=== PATIENT | male | born 1990 | race Caucasian/White ===

== ENCOUNTER 2019-02-09 14:29 | Inpatient (IN) ==
[2019-02-09] MEDS ORDERED: LOPRESSOR IV ONE (15:23)
[2019-02-09] MEDS ORDERED: ATIVAN IV ONE ×3 (15:23→17:33)
[2019-02-09 16:02] LABS: BASO# 0.05 X1000 (0.0-0.2); BASO% 0.4 % (0.0-0.8); EOS# 0.01 X1000 (0.0-0.7); EOS% 0.1 % (0.0-10.0); HEMATOCRIT 46.9 % (42.0-52.0); HEMOGLOBIN 16.2 g/dL (14.0-18.0); IMM GRAN# 0.06 X1000 (0.0-0.04); IMM GRAN% 0.5 % (0.0-0.5); LYMPH# 0.73 X1000 (1.2-3.4); LYMPH% 6.3 % (20.5-51.1); MCH 28.9 PG (27-31); MCHC 34.5 g/dL (33-37); MCV 83.8 FL (81-99); MONO# 1.04 X1000 (0.11-0.59); MONO% 8.9 % (1.7-9.3); MPV 10.2 FL (7.4-10.4); NEUT# 9.74 X1000 (1.4-6.5); NEUT% 83.8 % (42.2-75.2); PLT 217 X1000 (130-400); RDW 13.5 % (11.5-14.5); WBC 11.63 X1000 (4.8-10.8)
--- NOTE | 2019-02-09 16:18 | Diag Imaging Result Doc PS360 ---
EXAM: CT HEAD W/O CONTRAST HISTORY: new seizure TECHNIQUE: CT head without contrast COMPARISON: None. FINDINGS: No parenchymal hemorrhage. No epidural or subdural hematoma. No subarachnoid hemorrhage. No mass identified on this noncontrasted exam. No hydrocephalus. No sinus opacification. IMPRESSION: No hemorrhage. Negative brain CT without contrast. This exam was performed using automated exposure control, adjustment of mA or kV according to patient size, and/or use of iterative reconstruction technique. Electronically signed by Puneet Rooney 02/09/2019 4:16 PM
[2019-02-09 16:26] LABS: AGAP 23; ALB/GLOB RATIO 1.7; ALBUMIN 5.2 g/dL (3.5-5.0); ALKALINE PHOSPHATASE 72 U/L (32-122); BUN 12 mg/dL (8-22); CALCIUM 10.8 mg/dL (8.8-10.2); CHLORIDE 96 mmol/L (98-107); COSMO 279; CREATININE 1.3 mg/dL (0.7-1.2); ESTIMATED GFR > 60; GLUCOSE 158 mg/dL (70-104); GOT 216 U/L (10-34); GPT 113 U/L (10-44); SODIUM 138 mmol/L (136-145); TCO2 19 mmol/L (25-35); TOTAL BILIRUBIN 1.08 mg/dL (0.20-1.00); TOTAL PROTEIN 8.3 g/dL (6.3-8.3)
[2019-02-09] MEDS ORDERED: NS 500 ML IV ONE (17:12)
[2019-02-09] MEDS ORDERED: NS 2,000 ML ONE (17:20)
[2019-02-09] MEDS ORDERED: NS 1,000 ML IV ONE ×2 (17:26→19:19)
--- NOTE | 2019-02-09 17:33 | Diag Imaging Result Doc PS360 ---
EXAM: CHEST-PORTABLE HISTORY: sob/cp TECHNIQUE: Chest single view COMPARISON: None. FINDINGS: The lungs are well expanded. The heart is not enlarged. The vessels are not distended. There are no infiltrates. No effusion identified. IMPRESSION: Negative exam. Electronically signed by Puneet oRoney 02/09/2019 5:31 PM
--- NOTE | 2019-02-09 17:34 | PROVIDER DOCUMENTATION ---
This chart was entered by Delma Laguna Scribe, acting as scribe for Gilmer Ford MD. HPI-Neurological Disorder - General Chief Complaint: Seizure Stated Complaint: SEIZURE Time Seen by Provider: 02/09/19 15:14 Source: patient, family () Allergies/Adverse Reactions: Patient Allergies Allergy/AdvReac Type Severity Reaction Status Date / Time No Known Allergies Allergy Verified 02/09/19 15:21 - History of Present Illness-Neuro Nature of Presenting Problem: Patient is a 28 year old male who presents to the ED via EMS with seizure like activity. Patient's states she was home for lunch and patient got up and walked to the door and started jerking then fell to the ground and continued to jerk. denies patient having a history of seizure but states patient's mother has a history of seizures. Patient denies having incontinence. Patient states feeling palpitations when walking to the door. Denies taking daily medications today. Report he did not take his medications today because every time he took a sip of water he felt full. states patient has a cavernous hemangioma. Severity: reports: mild Onset/Duration: reports: just prior to arrival Timing: reports: gone now Context: reports: seizure activity Associated Symptoms: reports: nausea, other (palpitations) Similar Symptoms Previously?: No Recently seen or treated by another doctor?: No - Seizure First time to have a seizure?: Yes Witnessed seizure?: Yes How many seizure episodes?: 1 Duration of episode? (mins): 2 Episode Frequency: no prior episodes Character of Seizure: reports: generalized shaking all over Seizure related injury: bit tongue Review of Systems - Adult - REVIEW OF SYSTEMS - ADULT Constitutional: reports: no symptoms reported. denies: chills, fever, fatique Eyes: reports: no symptoms reported Ears, Nose, Mouth & Throat: reports: no symptoms reported Cardiovascular: reports: see HPI, palpitations. denies: chest pain, heart murmur Respiratory: reports: no symptoms reported Gastrointestinal: reports: see HPI, nausea. denies: diarrhea, vomiting Genitourinary: reports: no symptoms reported Musculoskeletal: reports: no symptoms reported Integumentary: reports: no symptoms reported Neurological: reports: see HPI, seizure. denies: dizziness/vertigo, headache/migraines, numbness, syncope Psychiatric: reports: no symptoms reported Endocrine: reports: no symptoms reported Hematologic/Lymphatic: reports: no symptoms reported Allergic/Immunologic: reports: no symptoms reported All Other Systems: Reviewed and Negative Past History - Adult - PAST MEDICAL HISTORY-ADULT Review of Records: reports: Nursing Assessment Review, Medications Reviewed, Social history reviewed & non-contributory. Major Childhood Illnesses: reports: denies history Cardiovascular: reports: HTN Respiratory: reports: denies history Gastrointestinal: reports: GERD Obstetrical/Gynecological: reports: denies history Genitourinary: reports: denies history Musculoskeletal: reports: denies history Neurological: reports: denies history Psychiatric: reports: anxiety, depression Endocrine/Immune: reports: denies history Other Conditions: reports: denies history - PRIOR SURGERIES/PROCEDURES Surgical/Procedure History: reports: reviewed, not pertinent - IMMUNIZATION STATUS Childhood Immunizations: See Nurse Assessment Flu Vaccine: See Nurse Assessment - FAMILY HISTORY Family History: reviewed, not pertinent - SOCIAL HISTORY Smoking: denies Substance Use: alcohol Alcohol Use Frequency: every day Living Situation: family Physical Exam- Neurological - Physical Exam-Neuro General Appearance: alert, no apparent distress, anxious. negative: lethargic, slow to respond HENMT: other (bite cyndi to tongue). negative: angioedema, hearing deficit Head Injury: no evidence of injury. negative: ecchymosis, lacerations Respiratory: chest non-tender, lungs clear. negative: crackles, rhonchi Cardiovascular: normal peripheral pulses, tachycardia. negative: systolic murmur Abdominal Exam: normal bowel sounds, non tender, soft. negative: guarding, rebound Extremity: non-tender, normal inspection. negative: deformity, erythema domestic housekeeper Exam: normal hearing, normal speech. negative: abnormal speech, facial droop Neurologic: grossly normal. negative: aphasia, facial droop Integumentary: normal color, normal turgor, warm/dry. negative: cyanosis, ecchymosis, erythema Psych/Mental Status: oriented x 3, anxious. negative: paranoid - Glascow Coma Scale Best Eye Response: (4) open spontaneously Best Verbal Response: (5) oriented Best Motor Response: (6) obeys commands Total Glascow Score: 15 Progress - PLAN OF CARE/RESULTS Progress/Plan/Lab Results: Vital Signs - 8 hr 02/09/19 14:50 02/09/19 15:00 02/09/19 15:03 Temperature Pulse Rate 119 H Respiratory Rate 18 Blood Pressure 159/98 164/100 O2 Sat by Pulse Oximetry 94 L 95 93 L 02/09/19 15:09 02/09/19 15:10 02/09/19 15:13 Temperature 98.9 F Pulse Rate 148 H 156 H Respiratory Rate 17 21 Blood Pressure 139/106 139/106 O2 Sat by Pulse Oximetry 95 93 L 94 L 02/09/19 15:20 02/09/19 15:30 02/09/19 15:40 Temperature Pulse Rate 154 H 157 H 149 H Respiratory Rate 24 15 26 H Blood Pressure O2 Sat by Pulse Oximetry 94 L 96 94 L 02/09/19 15:50 02/09/19 15:54 02/09/19 16:09 Temperature Pulse Rate 146 H 129 H Respiratory Rate 18 17 Blood Pressure 167/101 O2 Sat by Pulse Oximetry 94 L 93 L 95 02/09/19 16:10 Temperature Pulse Rate 116 H Respiratory Rate 25 H Blood Pressure O2 Sat by Pulse Oximetry 95 Laboratory Results - last 24 hr 02/09/19 02/09/19 02/09/19 15:28 15:40 15:40 WBC RBC Hgb Hct MCV MCH MCHC RDW Std Deviation Plt Count MPV Immature Gran % (Auto) Neut % (Auto) Lymph % (Auto) [place] % (Auto) Eos % (Auto) Baso % (Auto) Immature Gran # (Auto) Neut # (Auto) Lymph # (Auto) [place] # (Auto) Eos # (Auto) Baso # (Auto) Sodium 138 Potassium 5.0 Chloride 96 L Carbon Dioxide 19 L Anion Gap 23 BUN 12 Creatinine 1.3 H Estimated GFR/1.73 m2 > 60 BUN/Creatinine Ratio 9 Glucose 158 H POC Glucose 167 H Calculated Osmolality 279 Calcium 10.8 H Magnesium 2.0 Total Bilirubin 1.08 H AST 216 H ALT 113 H Alkaline Phosphatase 72 Total Protein 8.3 Albumin 5.2 H Globulin 3.1 Albumin/Globulin Ratio 1.7 Plasma/Serum Ethyl Alc 02/09/19 15:40 WBC 11.63 H RBC 5.60 Hgb 16.2 Hct 46.9 MCV 83.8 MCH 28.9 MCHC 34.5 RDW Std Deviation 13.5 Plt Count 217 MPV 10.2 Immature Gran % (Auto) 0.5 Neut % (Auto) 83.8 H Lymph % (Auto) 6.[address] % (Auto) 8.9 Eos % (Auto) 0.1 Baso % (Auto) 0.4 Immature Gran # (Auto) 0.06 H Neut # (Auto) 9.74 H Lymph # (Auto) 0.[address] # (Auto) 1.04 H Eos # (Auto) 0.01 Baso # (Auto) 0.05 Sodium Potassium Chloride Carbon Dioxide Anion Gap BUN Creatinine Estimated GFR/1.73 m2 BUN/Creatinine Ratio Glucose POC Glucose Calculated Osmolality Calcium Magnesium Total Bilirubin AST ALT Alkaline Phosphatase Total Protein Albumin Globulin Albumin/Globulin Ratio Plasma/Serum Ethyl Alc Orders Category Date Time Status Finger Stick Blood Sugar (ED) DIRECTED Care 02/09/19 15:21 Active Notify MD if DIRECTED Care 02/09/19 15:21 Active Saline Loc NOW Care 02/09/19 15:21 Active CHEST-PORTABLE [RAD] Stat Exams 02/09/19 17:[address] HEAD W/O CONTRAST [CT] Stat Exams 02/09/19 15:22 Completed ALCOHOL BLOOD Stat Lab 02/09/19 15:40 Completed CBC WITH ELECTRONIC DIFF [HEME] Stat Lab 02/09/19 15:40 Completed COMPREHENSIVE METABOLIC PANEL [CHEM] Stat Lab 02/09/19 15:40 Completed MAGNESIUM [CHEM] Stat Lab 02/09/19 15:40 Completed URINE DRUG SCREEN Stat Lab 02/09/19 15:21 Uncollected 0.9% Sodium Chloride Inj [Ns] 500 ml Med 02/09/19 17:12 Active IV 999 mls/hr Lorazepam [Ativan] Med 02/09/19 15:23 Discontinued 0.5 mg IV NOW ONE Lorazepam [Ativan] Med 02/09/19 16:06 Discontinued 0.5 mg IV NOW ONE Metoprolol [Lopressor] Med 02/09/19 15:23 Discontinued 5 mg IV NOW ONE Seizure, New Onset Stat Oth 02/09/19 15:21 Ordered Result Diagrams: 02/09/19 15:40 02/09/19 15:40 - EKG 1 Time of EKG reading by physician:: 15:15 EKG Read and Signed by:: Gilmer Ford EKG Interpretation (*Must complete 3 of following elements*): Abnormal Rate: 156 Rhythm: sinus tachycardia W[place] Interval: normal Comments: otherwise normal ECG - CT/MRI 1 CT Study: Head Impression: See EMR Report (EXAM: CT HEAD W/O CONTRAST HISTORY: new seizure TECHNIQUE: CT head without contrast COMPARISON: None. FINDINGS: No parenchymal hemorrhage. No epidural or subdural hematoma. No subarachnoid hemorrhage. No mass identified on this noncontrasted exam. No hydrocephalus. No sinus opacification. IMPRESSION: No hemorrhage. Negative brain CT without contrast. This exam was performed using automated exposure control, adjustment of mA or kV according to patient size, and/or use of iterative reconstruction technique. Electronically signed by Puneet Rooney 02/09/2019 4:16 PM 02/09/19 1616 Interpreting Physician: Puneet Rooney MD Dictated Date/Time: 02/09/19 1615 cc: Gilmer Ford MD; None,PCP) - CONSULTS/PCP/HOSPITALIST Notification #1 *Consult/PCP/Hospitalist*: KRISTIN Ireland for Hospitalist Time Discussed: 17:16 Reason/Comments: Dr. Ford consulted with Shu about patient. Consult Disposition: Will see in ED, Admit Departure - Departure Date of Disposition Decision: 02/09/19 Time of Disposition Decision: 17:16 DIAGNOSIS: New onset seizure, Hypercalcemia Disposition: HOME 01 Certified Medical Emergency: Emergent Condition: Stable Referrals and Follow-Ups: None,PCP [Primary Care Provider] - - Critical Care Note This patient required my direct & personal management of CC.: Yes Total Time (mins): 31 Critical Care Statement: This patient required my direct personal management to treat or rule out processes, the absence of which, could potentiallly result in sudden, clinically significant life or limb threatening deterioration. Attestation - Physician/ [facility] Attestation The physician spent face to face time with patient:: Yes Advanced Practice Provider documentation review:: Supervising physician onsite and consulted in the evaluation and care of this patient. The physician did have a face to face encounter with the patient. This chart was documented by the indicated scribe, (Delma Laguna Scribe) and accurately reflects the services I performed and decisions made by me, Gilmer Ford MD, as attested by the provider's signature.
[2019-02-09 18:04] LABS: ALLEN TEST YES; BE 0.4 mmoll (-3.0-3.0); BLOOD TYPE ARTERIAL; HCO3-(ACT) 25.1 mmoll (20.0-26.0); METHB 1.2 % (0.0-1.5); O2(CT) 20.5 mL/dL (15.0-23.0); O2HB 93.3 % (95.0-99.0); PCO2(98.6) 33 mmHg (35-45); PO2(98.6) 74 mmHg (60-100); SAMPLE BLOOD; SAO2 96.1 % (95.0-100.0); THB 15.6 g/dL (11.5-17.4); pH(98.6) 7.46 (7.35-7.45)
[2019-02-09 18:05] LABS: MODALITY ROOM AIR
[2019-02-09 18:49] LABS: UR AMPHETAMINES QUAL NONE DETECTED (NONE DETECT); UR BARBITUATES QUAL NONE DETECTED (NONE DETECT); UR BENZODIAZEPIN QUAL NONE DETECTED (NONE DETECT); UR CANNABINOIDS QUAL NONE DETECTED (NONE DETECT); UR COCAINE QUAL NONE DETECTED (NONE DETECT); UR METHADONE QUAL NONE DETECTED (NONE DETECT); UR OPIATES QUAL NONE DETECTED (NONE DETECT); UR OXYCODONE QUAL NONE DETECTED (NONE DETECT); UR PCP QUAL NONE DETECTED (NONE DETECT)
[2019-02-09] MEDS ORDERED: ATIVAN IV PRN (19:19)
[2019-02-09] MEDS ORDERED: PROTONIX IV SCH (19:19)
[2019-02-09] MEDS ORDERED: SODIUM CHLORIDE 0.9% INJ SCH (19:19)
[2019-02-09] MEDS ORDERED: ZOFRAN IV PRN (19:19)
--- NOTE | 2019-02-09 19:28 | HISTORY AND PHYSICAL ---
PRIMARY CARE PROVIDER: Catracho Valdivia MD NEUROLOGIST: Used to be Dr. Godoy in [place]. CHIEF COMPLAINT: Seizure activity. HISTORY OF PRESENT ILLNESS: Mr. Ojeda is a 28-year-old male, who carries a past medical history of a cavernous hemangioma that was diagnosed 1 year ago secondary to having headaches. He was followed by Dr. Godoy in [place]. He was placed on seizure medications; however, he only took it for about 6 months and then took himself off of it. He also quit going to his neurology appointments secondary to it being too far to drive. He does abuse alcohol. He drinks 1 pint of vodka per day. His last drink was yesterday evening. Hypertension, GERD, depression. He reported to the ED after his witnessed him have a seizure for about 3 minutes. There was no loss of bowel of bladder. Per EMS report, he was postictal afterwards. His head CT was negative. Chest x-ray was negative. Laboratory data showed a white count of 11, with a chloride of 96, a carbon dioxide of 19, creatinine 1.3, blood glucose of 158, calcium of 10.8, total bilirubin of 1.08, AST of 216, ALT of 113, alkaline phosphatase was 72, albumin 5.2. His serum alcohol level was negative. He did report prior to having the seizure he got up some time in the middle of the night to get on the couch. He was not sleeping well. He was having some nausea and vomiting. He could not keep any food or liquids down initially. His seizure was around lunchtime when his came home for lunch. He will be admitted to the ICU overnight for further evaluation and treatment and placed on seizure precautions as well watch him closely for any alcohol withdrawal. He does seem somewhat shaky. We will continue to provide IV Ativan and p.o. Librium and place him on DT protocol if necessary. REVIEW OF SYSTEMS: A 12 point review of systems was completely negative except for those mentioned in HPI. PAST MEDICAL HISTORY: 1. Hypertension. 2. Gastroesophageal reflux disease. 3. Cavernous hemangioma to the left frontal lobe. 4. Depression. PAST SURGICAL HISTORY: Cauterization of the nose. FAMILY HISTORY: Father is an alcoholic. He had an uncle who from alcoholism. SOCIAL HISTORY: He is . They have no children. They do have a dog that they refer to as their fur baby. One pint of alcohol per day. No illicit drug use or tobacco use. HOME MEDICATIONS: Have not been placed. However, the showed me bottles of buspirone, losartan, metoprolol, trazodone, Prilosec, and carbamazepine. PHYSICAL EXAMINATION: VITAL SIGNS: Temperature 98.6 degrees, heart rate 118, respirations 18, blood pressure 140/94, O2 is 96% on room air. GENERAL: Mr. Ojeda is a 28-year-old male, he was sitting up in the stretcher. He was asleep when I walked in. He awakened easily. After he was woken, he was somewhat anxious appearing. HEENT: Atraumatic, normocephalic. PERRL. NECK: Supple. Trachea midline. CARDIOVASCULAR: S1, S2 appreciated. No murmurs, gallops, or rubs noted. RESPIRATORY: Lung sounds clear bilaterally. GASTROINTESTINAL: Soft, nontender, nondistended. Positive bowel sounds 4 quadrants. SKIN: Warm, dry, and intact. EXTREMITIES: Lower extremities are negative for edema. NEUROLOGIC: Patient was asleep. He easily awoke to voice. He is alert and oriented to name, date of , time, and place. No focal deficits noted. DIAGNOSTIC AND LABORATORY DATA: As per HPI. ASSESSMENT AND PLAN: 1. Seizure could be 1 of 2 things. 1. alcohol withdrawal secondary to daily alcohol use with 1 pint of vodka. 2. The patient does have a history of a cavernous hemangioma. Could be a combination of both. His serum alcohol level was 0. His last drink was last night. He did have a witnessed seizure by his that lasted 3 minutes. He did bite his tongue. There was no loss of bowel or bladder. Again, we will monitor him in the ICU overnight, place him on seizure precautions, provide p.r.n. Ativan for seizures or alcohol withdrawal. Continue with frequent neurological checks. Consult Neurology in the a.m. Check a brain MRI in the a.m. Watch him closely for DTs. 2. Alcohol abuse see #1 3.Cavernous hemangioma history over a year ago and stopped going to see Neuro or taking seizure meds. 4. Hypercalcemia. We will check a PTH. Continue with IV fluid bolus and high rate IV fluids. Recheck his calcium in the morning. If it is still high, we could send him for a nuclear scan. 5. Hypertension. We will continue his home medications when reconciled. We will go ahead and start him on metoprolol. 6. Tachycardia. Continue metoprolol. 7. Anxiety and depression. We will continue home medications when verified. 8. Gastroesophageal reflux disease. Continue proton pump inhibitor. 9. Elevated liver functions, possibly secondary to alcoholism. We will check hepatitis profile and as well as check a right upper quadrant ultrasound in the morning. 10. Acute kidney injury. We will continue with IV fluids. Recheck his kidney function in the a.m. We do not have a baseline. 11. Hyperglycemia. We will check hemoglobin A1c in the a.m. Further recommendation to follow physician evaluation and laboratory and diagnostic data. Dictated by KRISTIN Eagle for John Byrd MD cc: MD Catracho Laura MD Eston G. Norwood III, MD I agree with most components of history, physical, assessment and plan. A separate addendum has been dictated. KIM
[2019-02-09] MEDS ORDERED: KEPPRA 1,500 MG in NS 100 ML IV ONE (19:30)
[2019-02-09] MEDS: LIBRIUM PO SCH (19:37)
[2019-02-09] MEDS ORDERED: TYLENOL PO PRN (20:13)
[2019-02-09] MEDS: LOPRESSOR PO SCH (20:49)
[2019-02-09] MEDS: MELATONIN PO SCH (20:49)
--- NOTE | 2019-02-09 21:21 | HISTORY AND PHYSICAL ---
ADDENDUM: This is an addendum to History and Physical dictated by the nurse practitioner. I agree with most components of history, physical, assessment, and plan. In brief, Mr. Ojeda is a 28-year-old man, with past medical history of chronic headache, suspected absence seizure, alcohol abuse, anxiety, family history of seizure in his mother in her 20s or 30s, who comes in after witnessed generalized tonic clonic seizure lasting for about 2 minutes, which was witnessed by his . When EMS arrived at the site, he was postictal and he was taken to the emergency room. In the emergency room, his vitals have been stable. At the time of my evaluation, the patient states that he used to drink 1 entire bottle of vodka a day for about 2-1/2 years. He started drinking when he was 24 to 25 years old. Since the last few months, he has been trying to cut it down and he drinks that entire bottle of vodka in about 2 to 3 days. His last drink was yesterday. He denies having experienced alcohol withdrawal symptoms except feeling a little jittery. He denies any prior alcohol withdrawal related hospital admission or alcoholic seizure. History is conformed and also addressed with the patient's at bedside. CURRENT VITALS: Temperature of 100 degrees, pulse of 112, respiratory rate 21, blood pressure 168/107, saturating 93 to 94 percent on 5 L nasal cannula. PHYSICAL EXAMINATION: GENERAL: Does not appear in any acute distress. ORAL CAVITY: Moist. LUNGS: Air entry bilaterally equal. No wheeze, rhonchi, crackles. CARDIOVASCULAR: S1, S2 normal. No murmur or gallop. ABDOMEN: Soft, nontender. LOWER EXTREMITIES: No edema. NEUROLOGIC: He is alert and oriented x3. Sensory examination is intact bilaterally. On motor examination, power, muscle mass, and tone are equal and 5/5 on bilateral upper and lower extremities. His speech is appearing normal. I did not check his gait. Cranial nerve examination is also nonfocal. LABS: Suggestive of leukocytosis. Normal hemoglobin, hematocrit, and normal platelet count. A pH is 7.46. BMP suggestive of elevated creatinine, hyperglycemia, hypercalcemia, and transaminitis, with AST more than ALT. MICROBIOLOGY: No data. IMAGING: Head CT did not have any parenchymal hemorrhage and no mass was identified. There was no sinus opacification. Chest x-ray: Lungs are well expanded. There were no infiltrates or effusion. ASSESSMENT AND PLAN: 1. 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 2. Alcohol abuse, with alcoholic hepatitis. 3. History of chronic headache. 4. Essential hypertension. 5. Kidney dysfunction. PLAN: 1. We will start patient on intravenous fluid resuscitation. 2. We will load him with levetiracetam . 3. We will start him with Keppra intravenous b.i.d. 4. I will also continue him on Librium and as needed lorazepam, and resume his home antihypertensive medication. 5. I will follow up with EEG, brain MRI to rule out structural lesions, and ultrasound abdomen for alcoholic hepatitis, and will consult Neurology in the morning time. 6. Plan of care was discussed with the patient and his at bedside. All of their questions have been answered. More than 30 minutes of critical care time was spent in taking care of this patient. cc: John Byrd MD MTDD
[2019-02-10] MEDS: LIBRIUM PO SCH ×4 (00:19→18:20)
[2019-02-10 05:39] LABS: BASO# 0.02 X1000 (0.0-0.2); BASO% 0.3 % (0.0-0.8); EOS# 0.09 X1000 (0.0-0.7); EOS% 1.4 % (0.0-10.0); HEMATOCRIT 42.1 % (42.0-52.0); HEMOGLOBIN 14.2 g/dL (14.0-18.0); LYMPH# 1.24 X1000 (1.2-3.4); LYMPH% 19.8 % (20.5-51.1); MCH 29.2 PG (27-31); MCHC 33.7 g/dL (33-37); MCV 86.4 FL (81-99); MONO# 0.74 X1000 (0.11-0.59); MONO% 11.8 % (1.7-9.3); MPV 10.4 FL (7.4-10.4); NEUT# 4.16 X1000 (1.4-6.5); NEUT% 66.7 % (42.2-75.2); PLT 132 X1000 (130-400); RBC 4.87 XMIL (4.7-6.1); RDW 13.5 % (11.5-14.5); WBC 6.25 X1000 (4.8-10.8)
[2019-02-10 05:49] LABS: AGAP 15; ALB/GLOB RATIO 1.5; ALBUMIN 4.4 g/dL (3.5-5.0); ALKALINE PHOSPHATASE 57 U/L (32-122); BUN 12 mg/dL (8-22); CALCIUM 9.1 mg/dL (8.8-10.2); CHLORIDE 99 mmol/L (98-107); COSMO 277; CREATININE 1.1 mg/dL (0.7-1.2); ESTIMATED GFR > 60; GLUCOSE 95 mg/dL (70-104); GOT 130 U/L (10-34); GPT 83 U/L (10-44); MAGNESIUM 2.3 mg/dL (1.5-2.7); POTASSIUM 3.7 mmol/L (3.5-5.1); SODIUM 139 mmol/L (136-145); TCO2 25 mmol/L (25-35); TOTAL BILIRUBIN 1.07 mg/dL (0.20-1.00); TOTAL PROTEIN 7.3 g/dL (6.3-8.3)
[2019-02-10] MEDS ORDERED: KEPPRA 750 MG in NS 100 ML IV SCH (06:00)
--- NOTE | 2019-02-10 07:21 | EKG Report ---
Test Performed on : 02/09/2019 3:15:08 PM Test Reason : ED. NO EKG ORDER FOR MUSE Blood Pressure : / mmHG Vent. Rate : 156 BPM Atrial Rate : 156 BPM P-R Int : 120 ms QRS Dur : 086 ms QT Int : 266 ms P-R-T Axes : 041 068 013 degrees QTc Int : 428 ms Sinus tachycardia. Otherwise normal ECG No previous ECGs available Unconfirmed Result
[2019-02-10] MEDS: LOPRESSOR PO SCH ×2 (08:28→20:15)
[2019-02-10] MEDS: COZAAR PO SCH (08:28)
--- NOTE | 2019-02-10 09:28 | EKG Report ---
Test Performed on : 02/10/2019 06:25:03 AM Test Reason : MD ordered Blood Pressure : / mmHG Vent. Rate : 091 BPM Atrial Rate : 091 BPM P-R Int : 152 ms QRS Dur : 092 ms QT Int : 380 ms P-R-T Axes : 021 016 009 degrees QTc Int : 467 ms Normal sinus rhythm. Normal ECG No previous ECGs available Confirmed by Tereso GONZALES, Phani Bradford ([id number]) on 02/11/2019 8:20:30 AM
--- NOTE | 2019-02-10 09:40 | Diag Imaging Result Doc PS360 ---
EXAM: MRI BRAIN W/WO CONTRAST INDICATION: Evaluate for hemangioma/mass COMPARISON: CT dated 02/09/2019. No prior MRIs available for comparison. FINDINGS: There is no evidence of acute infarct. At the anteromedial temporal lobe on the left near the skull base, there is a small rounded lesion measuring 1.3 x 1.1 cm axially. It has a heterogeneous signal. It is increased in signal on T1 and T2 centrally. There is a rim of low signal at its periphery on all sequences that is most prominent on the gradient coronal sequence. This suggests trace blood products (hemosiderin). This lesion is consistent with a cerebral cavernous malformation. It is certainly possible that this is the source of the patient's recent seizure, especially given its location. There is no appreciable enhancement. The small lesion was largely occult on the recent CT. Reviewing the previous CT, it may be visualized as a very subtle and ill-defined focus of increased attenuation. There is no other discrete intracranial mass, mass effect, or intracranial hemorrhage. There is no evidence of abnormal intracranial enhancement. The surrounding soft tissues and bony structures are essentially unremarkable. 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 Electronically signed by Asif Adair 02/10/2019 9:37 AM
--- NOTE | 2019-02-10 10:09 | PROGRESS NOTE ---
DATE: 02/10/2019 INTERVAL HISTORY: No acute overnight events. He did not have any more seizure episodes. He is still feeling a little weak. Denies any new complaints. SUBJECTIVE: Denies any chest pain, shortness of breath, nausea, vomiting, or abdominal pain. His complaining of some back pain. VITAL SIGNS: Temperature 98.4 degrees, pulse 90, respiratory rate 18, blood pressure 160/97, saturating 96% on room air. PHYSICAL EXAMINATION: General: Does not appear in acute distress. HEENT: Oral cavity is moist. Lungs: Air entry bilaterally equal. No wheeze, rhonchi crackles. CARDIOVASCULAR: S1, S2 normal. No murmur or gallop.Abdomen: Soft, nontender. Lower Extremities: No edema. Neurologic: He is alert oriented x3. On my yesterday's neurological examination, sensations were intact bilateral upper and lower extremity, power was 5 in 5. Cranial nerve examination was nonfocal and he did not have any dysdiadochokinesia. LABS: Today suggestive of normal hemoglobin, hematocrit, normal WBC count and normal platelet count. His electrolytes are essentially unremarkable. His creatinine has gone down. His transaminitis is improving. His urine toxicology was unremarkable. ASSESSMENT AND PLAN: 1. New onset generalized tonic-clonic seizure with suspected past history of absence seizure and history of cavernous hemangioma. Continue intravenous levetiracetam. Continue intravenous lorazepam as needed and follow up EEG and brain MRI. Appreciate Neurology recommendation. 2. History of alcohol abuse with one pint of vodka every day. Last drink on 02/08/2019 with alcoholic hepatitis. Follow up ultrasound of the liver. Continue chlordiazepoxide as needed IV lorazepam. 3. Essential hypertension continue him on home metoprolol and losartan. DISPOSITION: I will continue to monitor the patient in ICU for 24 hours to make sure he does not have any seizures. I will appreciate neurology recommendation about further antiseizure medication and workup based on his MRI findings. Plan of care discussed with him. TIME SPENT: More than 30 minutes of critical care time was spent in taking care of this patient. cc: John Byrd MD
--- NOTE | 2019-02-10 12:00 | CONSULTATION ---
DATE OF CONSULTATION: 02/10/2019 HISTORY: Mr. Ojeda is 28 years old and there is question of seizure. History from the patient and his attentive is that he was feeling nervous, which is not unusual. He stood, walked to the door, put each hand against the door frame. He reports remembering that he was beginning to turn, and he next remembers being on the couch with emergency personnel checking on him. History from is that he turned and seemed to become rigid and fell. She witnessed alternating periods of rigidity in the limbs with periods of shaking symmetrically in the limbs. The entire episode was a minute or so. There was no incontinence. He bit the tip of his tongue, but not to the point of bleeding. He was sleepy afterwards. There is history of possible periods of altered awareness as far back as childhood. There is history of behavior and memory gap. For example, he reports stripping the sheets off of his bed and putting them in his mother's car, and not remembering he had done that. Possibly, he did remember it later. There have been a lot of episodes of inattention with question of memory gap. has witnessed episodes of blank stare with unresponsiveness, sometimes associated with "saying words that do not make sense" for several seconds. Sometimes, he seems sleepy after one of those episodes. These have never been associated with tongue biting, lip biting, or incontinence. Episodes have occurred with variable frequency, several per year, more often when he has missed sleep. There is history of head injuries when he participated in cage fighting, but there was not clear history of concussion. He has never had diagnosed stroke or other neurologic event. He uses ethanol to excess. He went through a detox program and did not drink for about 3 months approximately a year ago. In the last year, he has ingested ethanol daily. He did not ingest ethanol for more than 24 hours prior to the episode yesterday. There was no change in frequency or character or episodes during the time without ethanol. He and have incomplete recollection, but they believe he used Trileptal 1 tablet daily for about 6 months, approximately a year ago, and there was no change in the episodes of altered awareness during that time. Workup here includes lab showing initial WBC count 11,000, later 6000. Blood sugars were initially 160s, later 90s. Liver enzymes are elevated. Urine drug screen was all negative. Ethanol level was none detected. Noncontrast CT was unremarkable. Brain MRI has been done with report pending. On my view of MRI pending radiologist's report, there is the lesion in the left hemisphere consistent with previously diagnosed cavernous hemangioma. OBJECTIVE: On exam, Mr. Ojeda is awake, alert, and attentive. He seems appropriate now. Speech is not dysarthric. Language function is intact on bedside testing. Memory is good. Head and neck are unremarkable. Visual mcmahon are full. Extraocular movements are full. Facial motility is symmetric. Facial sensation is intact to pinprick testing. Gag is intact. Tongue is midline. There is very minor ecchymosis over the tip of the tongue. Shoulder shrug is equal. Strength is normal in the arms and legs. He did well on [id number] testing bilaterally. He reports equal pinprick appreciation over the left and right limbs. Proprioception is normal at the great toe MTP joint bilaterally. I did not test his gait. IMPRESSION: 1. Episode yesterday of collapse with generalized rigidity and shaking. Features are consistent with generalized seizure, but other explanations are not excluded. 2. Prior history of transient altered awareness with question of partial seizure. The etiology of seizure is not established, but the report that he has nonsense speech during these episodes may be consistent with left hemisphere focus. 3. Apparent cavernous hemangioma on the left. This may be related to seizure. 4. Ethanol abuse. Ethanol withdrawal may have contributed to recent episode. 5. Baseline anxiety. PLAN: We will plan EEG and further plans will depend on that report. We may need to recommend he be treated with medicine for seizure control. We might consider oxcarbazepine b.i.d. or we might choose a different drug. I discussed the [place] Law as it pertains to driving with patient and , and they understand his responsibility. I advised him not to get into any situation in which a seizure or other episode of altered awareness might result in injury to him or to someone else. Thanks for asking Neurology to see Mr. Ojeda. cc: MD KIM Vasquez III
[2019-02-10 12:58] LABS: HEPATITIS PROFILE ACUTE SEE COMMENTS
--- NOTE | 2019-02-10 14:53 | EEG REPORT ---
DATE: 02/10/2019 EEG #: [id number]. COMMENT: This is a digitally recorded EEG done portably in the ICU on a 28-year-old patient with possible recent generalized seizure, possible prior partial seizures. FINDINGS: During waking, muscle contraction artifact is present but does not hinder interpretation. Background contains polymorphic and rhythmic theta frequencies occurring symmetrically across the hemispheres. There are a few paroxysms of high amplitude generalized slowing without change in behavior and with no change identified on the video. Poorly sustained 9-9.5 Hz posterior rhythm is present symmetrically with uncertain reactivity to eye opening. Drowsing occurred with the appearance of more generalized slowing. Stage 2 sleep was recorded briefly with symmetric features. Hyperventilation with good effort did not significantly alter the EEG. Photic stimulation did not alter the EEG. No definite epileptiform discharge was identified. INTERPRETATION: Normal EEG. CORRELATION: The absence of epileptiform discharges on a single EEG does not exclude a clinical diagnosis of seizures. cc: MD John Vasquez III, MD [facility]
[2019-02-10] MEDS: TOPAMAX PO SCH (15:28)
[2019-02-10] MEDS ORDERED: ATIVAN IV PRN (15:44)
--- NOTE | 2019-02-10 17:07 | Diag Imaging Result Doc PS360 ---
EXAM: US GB < RUQ (LIMITED) INDICATION: elevated LFTS COMPARISON: None. FINDINGS: The gallbladder appears normal with no stones, wall thickening, or pericholecystic fluid. The common bile duct is normal in diameter. Sonographic Holland's sign was reported to be negative. The liver is somewhat enlarged measuring 19.1 cm in length. The liver is echogenic suggesting hepatic steatosis. No discrete hepatic mass is identified. Portal venous flow is hepatopetal. The pancreas is largely obscured by bowel gas. The mid and distal segments of the aorta are unremarkable. The proximal aorta and IVC are obscured. The right kidney is grossly unremarkable. IMPRESSION: Prominent liver and suggestion of hepatic steatosis. Electronically signed by Asif Adair 02/10/2019 5:05 PM
[2019-02-10] MEDS: KEPPRA PO SCH (18:06)
[2019-02-10] MEDS: MELATONIN PO SCH (20:15)
[2019-02-11] MEDS: LIBRIUM PO SCH ×2 (00:43→06:22)
[2019-02-11] MEDS: KEPPRA PO SCH (06:22)
[2019-02-11] MEDS ORDERED: PRILOSEC PO SCH (07:00)
[2019-02-11] MEDS: TOPAMAX PO SCH (08:06)
[2019-02-11] MEDS: LOPRESSOR PO SCH (08:06)
[2019-02-11] MEDS: COZAAR PO SCH (08:06)
[2019-02-11 09:14] VITALS: BP 168/102
[2019-02-11] MEDS ORDERED: MBX SOLUTION MT PRN (09:45)
--- NOTE | 2019-02-11 20:01 | DISCHARGE SUMMARY ---
ADMISSION DATE: 02/09/2019 DISCHARGE DATE: 02/11/2019 DISCHARGE DISPOSITION: Home. DISCHARGE CONDITION: Stable. The patient is alert and oriented x3. Able to come out of bed without anyone's support. He is eating by himself DISCHARGE DIAGNOSES: 1. New onset generalized tonic-clonic seizures. 2. Cavernous malformation at medial temporal lobe on the left of about 1.3 x 1.1 cm. 3. Alcoholic fatty liver. 4. Essential hypertension. OTHER DIAGNOSES: 1. Suspected history of partial seizure. 2. History of anxiety. 3. History of insomnia. 4. History of alcohol abuse. CONSULTATION DURING HOSPITALIZATION: Neurology, Dr. Hobson. SIGNIFICANT IMAGING DURING HOSPITAL ADMISSION: 1. Head CT on admission did not have any hemorrhage. It was negative for any other abnormalities. 2. Chest x-ray did not have any acute cardiopulmonary process. 3. Brain MRI had suggested cavernous malformation at the medial temporal lobe on the left of about 1.3 x 1.1 cm. 4. Abdominal ultrasound had prominent liver and suggestion of hepatic steatosis. 5. Electro encephalogram was within acceptable limits without any epileptiform discharges. DISCHARGE MEDICATIONS: 1. Losartan 50 mg daily. 2. Levetiracetam 750 mg b.i.d. every 12 hours, 60 tablets and 1 refill have been prescribed. 3. Chlordiazepoxide 25 mg tablets. He is supposed to take 25 mg t.i.d. for 2 days, 25 mg b.i.d. for 2 days, and 25 mg once a day for 3 days. 4. Metoprolol 25 mg b.i.d. 5. MBX solution 180 mL bottle as needed 4 times a day for mouth pain. 6. Topiramate 25 mg p.o. daily. His home medication was not reconciled by the time of this dictation. However, I advised the patient to continue his home buspirone for generalized anxiety and trazodone for insomnia. I had advised him to not take his carbamazepine until he sees a neurologist and his regular doctor. VITAL SIGNS: At the time of discharge, temperature 97.7 degrees, pulse 84, respiratory rate 16, blood pressure 134/96. He is saturating 95% on room air. PHYSICAL EXAMINATION: Patient is alert and oriented x3 not in any acute distress. Oral cavity is moist. Lungs: Air entry bilaterally equal. No wheezing, rhonchi or crackles. Heart: S1, S2 normal. No murmur or gallop. Abdomen: Soft, nontender. Extremities: No lower extremity edema. Neurologic: He is alert oriented x3. General examination normal. Sensory and motor examination was normal on my previous neurological examination. SIGNIFICANT LABORATORY DURING HOSPITAL ADMISSION: WBC [place] [address]2538 at admission, which had gone down to 6.2 at the time of discharge. His hemoglobin was 14.2 and platelet 132,000. His electrolytes on admission had kidney dysfunction with creatinine of 1.3. However, BUN was 12. His carbon dioxide was 19, which had decreased increased to 25 at the time of discharge. He did have alcoholic induced liver injury with total bilirubin of 1.07, AST of 130, and ALT of 83 at discharge, which were trending down. Hepatitis panel was nonreactive. HOSPITAL COURSE SUMMARY: Mr. Ojeda is 28-year-old man who had past medical history of cavernous hemangioma and suspected partial seizure activity with anxiety who was brought in by his for generalized tonic-clonic seizures of about 2 minutes duration. The patient did have a diagnosis of cavernous hemangioma since about 2 years, and he was briefly put on likely antiseizure medication by his neurologist. However, he had stopped taking those medications, and he had stopped following his neurologist. History was limited as the patient was a poor historian. However, on the day of presentation when patient's arrived from work, the patient was about to go to the bathroom and suddenly he started shaking and had fallen down. Shaking involved both upper and lower extremities, and lasted for about 2 minutes following which he was confused so EMS was called, and he was brought to the ER. In the emergency room, his CT scan of head was unremarkable. His electrolytes were largely within acceptable range. His blood glucose was also normal. Hospitalist team was consulted for further management. He was admitted to ICU for close monitoring. He was given Keppra loading with 1500 mg IV, and was started on 750 mg b.i.d. and neurologist was consulted the next day. His EEG was unremarkable. MRI detected brain hemangioma. According to Neurology, that could have been focus of his seizure. He was continued on oral Keppra and topiramate was added to his regimen, which he was tolerating well. At the time of discharge, he was discharged on oral Keppra and topiramate with outpatient Neurology follow-up. The outpatient plan was to slowly titrate his topiramate up, and decrease the levetiracetam. At the time of discharge, though proper medication reconciliation was not done. I had advised him not to take his carbamazepine because potential medication reactions until he sees Dr. Hobson in his clinic. TIME SPENT: More than 30 minutes were spent discharging the patient. I discussed plan of care with the patient and his at bedside. All of their questions have been answered. Prescriptions of topiramate and levetiracetam with Magic Mouthwash because of tongue injury were provided to him. cc: John Byrd MD
== END 2019-02-11 10:30 | disposition home or self-care (01) | DRG 101 ==
LOC: SUPCPDRO → ED 14:29 → ICU 18:16
PROVIDERS: ATTEND Internal Medicine
CPT/HCPCS: 70450; 70553; 71010; 71045; 76705; 80053; 80074; 80101; 80301; 80307; 80320; 80324; 80345; 80346; 80353; 80358; 80361; 80365; 82055; 82805; 82948; 83735; 83970; 83992; 84443; 85025; 93005; 93010; 95816; 96374; 96375; 96376; 99285; A9270; A9579; C9113; G0431; G0434; G0479; G0480; G6040; J1953; J2060; J7030; J7040; S0164; XXXXX